=== PATIENT | male | born 1970 | race Caucasian/White ===

== ENCOUNTER 2023-04-07 16:39 | Emergency (ER) | payer BC, SELFPAY ==
[2023-04-07 17:09] VITALS: BP 152/80
[2023-04-07 17:55] LABS: COVID-19 Antigen Negative (Negative)
--- NOTE | 2023-04-07 18:17 | ED.GENMED ---
History of Present Illness
General
Chief Complaint: Breathing Problem
Source: patient
Exam Limitations: none
Time Seen by Provider: 04/07/23 17:57
Travel History
Have you had any contact with someone who has COVID-19?: No
Do you have any symptoms of coronavirus? Fever > 100 degrees, chills, cough, shortness of breath, sore throat, loss of taste or smell, muscle aches, or headache?: No
History of Present Illness
History of Present Illness:
This is a 52 year old male that comes in with multiple complaints. States that he never feels good and today he was having cramping and his BP was elevated. States that his BP at home was 177/90, 175/88. States that he was placed on BP medication
but he is not good about following up. States that he also broke a tooth last summer in the left upper gum line and this is also starting to hurt. States that he feels SOB and has a headache. Denies any fever, chills, chest pain, abd pain, nausea,
vomiting, diarrhea, dizziness, urinary burning.
Past History
Past History
ED Past Medical History: GERD, HTN, Psychiatric (Panic attacks but not officially diagnosed ) and Other (PNA)
ED Past Surgical History: Appendectomy, Orthopedic (Left thumb surgery) and Tonsilectomy
Social History
Tobacco: Former smoker
Alcohol: Daily (4-8 beer or Hard ice tea)
Drug: None
Personal:
Living: alone
Review of Systems
Review of Systems
All Other Systems: ROS reviewed and negative except as documented in HPI and ROS
Constitutional: Reports no symptoms; Denies fever or chills
EENT: Reports no symptoms
Respiratory: Reports trouble breathing; Denies cough
Cardiac: Denies chest pain
ABD/GI: Reports no symptoms; Denies abdominal pain, nausea, vomiting or diarrhea
: Reports no symptoms; Denies dysuria, frequency or urgency
Musculoskeletal: Reports no symptoms
Skin: Reports no symptoms
Neurological: Reports headache; Denies dizzy
Psychiatric: Reports no symptoms
Phy Exam
General Physical Exam
General Presentation: no apparent distress
General age: appears stated age
General Skin: warm and dry
General Habitus: normal
General Mental: alert
General Hydration: appears well hydrated
ENT Exam
ENT Exam: TM's normal, pharynx normal, neck supple and other (Left upper tooth broken and part of tooth is still below the gum line, Negative for any redness or swelling)
Eye Exam
Eye Exam: EOMI
Cardiovascular Exam
Cardiovascular Exam: regular rate/rhythm, no murmur and normal peripheral pulses
Pulmonary Exam
Pulmonary Exam: lungs clear, no respiratory distress, no rales, chest non tender, no crackles, no rhonchi, no wheezing and no cough
Gastrointestinal Exam
Gastrointestinal Exam: normal bowel sounds, non tender, soft, no organomegaly, no pulsatile mass, non distended and other (Obese)
Musculoskeletal Exam
Musculoskeletal Exam: full ROM and no edema
Skin Exam
Skin Exam: normal color, warm/dry, no rash and no petechia
Psychiatric Exam
Psychiatric Exam: normal mood/affect
Scores
Heart Failure Risk
Heart Failure Risk Score: Not Applicable
Course
Orders/Labs/Results
Orders:
Orders
04/07/23 17:18
EKG [Electrocardiogram (*1)] Urgent
Reason for Study: Shortness of Breath
EKG- Treatment ONCE
04/07/23 17:33
COVID-19 Antigen Urgent
Source: Nasal Swab
INF RAPID [Influenza A+B Rapid Molecular] Urgent
JS Source: Nasal Swab
Specimen Description:
04/07/23 18:16
Pantoprazole [Protonix IV] 40 mg IV NOW STA
04/07/23 18:17
CR Chest - 2 Views Urgent
Comment:
Reason For Exam: SOB
04/07/23 18:31
CMP [Comprehensive Metabolic Panel] Urgent
CPK [Creatine Phosphokinase] Urgent
Complete Blood Count/With Diff Urgent
Troponin I Urgent
Abnormal Lab Results
04/07/23
18:31
MCH 33.3 H pg
(27.0-31.0)
MCHC 37.2 H g/dL
(33.0-37.0)
MPV 10.8 H fL
(7.4-10.4)
Absolute Neuts (auto) 7.5 H 10^3/uL
(1.4-6.5)
Absolute Monos (auto) 0.9 H 10^3/uL
(0.1-0.6)
Lymphocytes % 18.4 L %
(20.5-51.1)
Sodium 133 L mmol/L
(135-145)
BUN 22 H mg/dl
(9-20)
04/07/23 18:31
04/07/23 18:31
Negative for COVID and Influenza, Sodium slightly low. Dehydration. Troponin <0.012, CPK normal at 129,
Vital Signs
Initial and Last Documented VS:
Initial Vital Signs
Temp Pulse Resp BP Pulse Ox
98.9 F 92 18 152/80 97
04/07/23 17:09 04/07/23 17:09 04/07/23 17:09 04/07/23 17:09 04/07/23 17:09
Last Documented Vital Signs
Temp Pulse Resp BP Pulse Ox
98.9 F 82 17 124/77 96
04/07/23 17:09 04/07/23 20:01 04/07/23 20:01 04/07/23 19:00 04/07/23 20:01
MDM/Problems Addressed
Differential Diagnosis Includes:
Hypertension Obesity, Anxiety
MDM/Problems Addressed:
This is a 52 year old male that comes in with multiple complaints. State that his BP was elevated today and that he always does not feel well. States that he was put on BP medication at year ago but he is not good about following up. States that his
not feeling good every day is not new and has been going on for a year. States that he has felt SOB and has a headache.
Will check labs, X-ray. COVID and Influenza.
Back into see patient. explained that his blood work shows very sight dehydration. Patient never had any chest pain and his Troponin is normal. Explained that his chest x-ray is normal. As for patient Reflux, will place on Protonix and patient is to
follow up with his PCP for further evaluation. Patient to return with any concerns.
Chronic conditions affecting care: HTN
Acute Exacerbation and/or Progression of Chronic Illness: HTN
*Radiology
Radiology exam reviewed: radiology read reviewed (Chest- No acute disease of the chest)
*Pulse Oximetry
Patient hypoxic: no
*EKG
Interpreted by ED Provider?: Yes
Heart Rate: 96
Rate: normal
Rhythm: sinus
[place]: normal axis
Interval: normal interval
QRS Pattern: right bundle branch block
Ischemia: no ischemia
*Critical Care Note
Total Time (30-74mins, 75-104mins- exclusive of procedures): Not Applicable
ED Attending Note
-
Portions of this chart may have been created with voice recognition software.� Occasional wrong word or��sound alike� substitutions may have occurred due to the inherent limitations of voice recognition software.
Discharge Plan
Departure
Patient Disposition: Home (Routine Discharge)
Date of Disposition: 04/07/23
Time of Disposition: 20:25
Patient with high blood pressure during this ER visit?: Yes
Condition: Good
Covid-19: Negative COVID-19
Discharge Problem:
Gastroesophageal reflux disease
Instructions: Acid Reflux and GERD in Adults (DC), BLOOD PRESSURE
Prescriptions:
New
pantoprazole [Protonix] 40 mg tablet,delayed release (DR/EC)
40 mg PO DAILY Qty: 30 0RF
No Action
lisinopril-hydrochlorothiazide 10-12.5 mg tablet
1 tab PO DAILY Qty: 30 0RF
Referrals:
Allyn Yeager MD [Family Provider] - Follow up in 2-3 days
Activity Restrictions/Additional Instructions:
As discussed, your blood work shows very slight Dehydration. Please increase your water intake to 8-8oz glasses daily. Your BP has come down on its own. Please follow up with the the PCP for further evaluation. You have also been given a
prescription for Protonix that will help with your Reflux. IF YOU TAKE YOUR BLOOD PRESSURE MEDICATION IN THE MORNING USE THE PROTONIX AT NIGHT. Please try and decrease your Caffeine intake as this makes your Reflux worse. IF YOU HAVE ANY CHEST
PAIN, OR YOU HAVE ANY OTHER CONCERNS PLEASE RETURN TO THE EMERGENCY ROOM
Interventions
Interventions:
*Risk Screen - Suicide Last Done: 04/07/23 17:09
*General Assessment Last Done: 04/07/23 18:21
*Neglect/Abuse Screening Last Done: 04/07/23 17:09
ED- Fall Risk Assessment Last Done: 04/07/23 18:22
*ED COVID-19 Vaccine History Last Done: 04/07/23 17:09
ED- Cardiac Assessment Last Done: 04/07/23 18:52
ED- Pulmonary Assessment Last Done: 04/07/23 19:51
[2023-04-07 18:20] VITALS: BMI 44.9
[2023-04-07 18:40] LABS: % Eosinophils 1.1 % (0-6); % Immature Granulocytes 0.3 % (0-0.5); % Lymphocytes 18.4 % (20.5-51.1); % Monocytes 8.5 % (1.7-9.3); % Neutrophils 70.7 % (42.2-75.2); Absolute Basophils 0.1 10^3/uL (0-0.2); Absolute Eosinophils 0.1 10^3/uL (0-0.7); Absolute Monocytes 0.9 10^3/uL (0.1-0.6); Absolute Neutrophils 7.5 10^3/uL (1.4-6.5); Mean Corp Hgb Conc. 37.2 g/dL (33.0-37.0); Mean Corpuscular Hgb 33.3 pg (27.0-31.0); Mean Corpuscular Volume 89.4 fL (80.0-94.0); Mean Platelet Volume 10.8 fL (7.4-10.4); Nucleated Red Blood Cells % 0 % (-); Platelet Count 199 10^3/uL (130-400); Red Blood Cell Count 4.81 10^6/uL (4.70-6.10); Red Cell Dist. Width 12.4 % (11.5-14.5); White Blood Cell Count 10.7 10^3/uL (4.8-10.8)
[2023-04-07 18:53] LABS: ALT (SGPT) 42 U/L (0-50); AST (SGOT) 29 U/L (17-59); Albumin 4.5 g/dl (3.5-5.0); Alkaline Phosphatase 46 U/L (38-126); Blood Urea Nitrogen 22 mg/dl (9-20); Calcium 9.2 mg/dl (8.4-10.2); Carbon Dioxide 25 mmol/L (22-30); Chloride 100 mmol/L (98-107); Estimated Creatinine Clearance 114 ml/min; Glucose 92 mg/dl (70-99); Potassium 4.2 mmol/L (3.5-5.1); Sodium 133 mmol/L (135-145); Total Bilirubin 0.9 mg/dl (0.2-1.3); Total Protein 7.3 g/dl (6.3-8.2); eGFR > 60.00
[2023-04-07] MEDS: PROTONIX IV 40 MG IV (18:53)
[2023-04-07 18:54] VITALS: BP 139/82
[2023-04-07 19:00] VITALS: BP 124/77
[2023-04-07 19:04] LABS: Troponin I < 0.012 ng/ml
[2023-04-07 19:57] LABS: Creatine Phosphokinase 129 U/L (55-170)
[2023-04-07 20:41] VITALS: BP 130/78
== END 2023-04-07 20:46 | disposition home or self-care (01) ==
LOC: EMR 16:39
PROVIDERS: Emergency Medicine; EMERGENCY PHYSICIAN Student in an Organized Health Care Education/Training Program; FAMILY PHYSICIAN Internal Medicine
DX: K21.9 Gastro-esophageal reflux disease without esophagitis (principal); R51.9 Headache, unspecified; I10 Essential (primary) hypertension; Z87.891 Personal history of nicotine dependence; Z90.49 Acquired absence of other specified parts of digestive tract
CPT/HCPCS: 99283; 96374; 71046; 80053; 82550; 84484; 85025; 87502; 87811; 93005

== ENCOUNTER → 2023-11-21 11:52 | Outpatient (REF) | payer BC, SELFPAY | LOC: HWRAD 11:52 | DX: R06.02 Shortness of breath (principal) | CPT/HCPCS: 71046 ==

== ENCOUNTER → 2023-12-02 09:41 | Outpatient (REF) | payer BC, SELFPAY | LOC: HWRAD 09:41 | DX: M54.50 Low back pain, unspecified (principal) | CPT/HCPCS: 72110 ==